=== PATIENT | male | born 1935 | race Caucasian/White ===

== ENCOUNTER → 2016-07-29 | Outpatient (CLI) | payer MEDICARE, OTHER ==
[2016-07-29 09:31] LABS: Calcium 9.4 mg/dL (8.4-10.2); Phosphorous 3.7 mg/dL (2.5-4.5); Potassium 4.5 mmol/L (3.5-5.1); Total Bilirubin 0.8 mg/dL (0.2-1.3)
== END | disposition home or self-care (01) ==
LOC: LABWHC1 08:11
PROVIDERS: ATTEND Internal Medicine
DX: N18.4 Chronic kidney disease, stage 4 (severe) (principal); E55.9 Vitamin D deficiency, unspecified; N25.81 Secondary hyperparathyroidism of renal origin
CPT/HCPCS: 36415; 80053; 82306; 83735; 83970; 84100

== ENCOUNTER 2016-11-16 21:00 | Emergency (ER) | payer MEDICARE, OTHER ==
[2016-11-16 21:08] VITALS: RESP 18
[2016-11-16] MEDS ORDERED: traMADol 50 MG TAB PO STA (21:35)
[2016-11-16 22:02] LABS: Basophils # (A) 0.1 k/uL (0-0.2); Basophils % (A) 1 %; CH 29.7; Eosinophils # (A) 0.6 k/uL (0-0.7); Eosinophils % (A) 7 %; HCT 42.6 % (39.0-53.0); HDW 2.67; HGB 14.3 gm/dL (13.0-17.5); Luc % (Auto) 1; Lymphocytes # (A) 1.6 k/uL (1.0-4.8); Lymphocytes % (A) 20 %; MCH 29.4 pg (25.0-35.0); MCHC 33.6 g/dL (31.0-37.0); MCV 87.7 fL (80.0-100.0); Mean Platelet Volume 7.4; Monocytes # (A) 0.4 k/uL (0-1.0); Monocytes % (A) 5 %; Neutrophils # (A) 5.2 k/uL (1.3-7.7); Neutrophils % (A) 65 %; RBC 4.86 m/uL (4.30-5.90); WBC 7.9 k/uL (3.8-10.6); WBC (Perox) 7.94
[2016-11-16 22:11] LABS: Calcium 9.3 mg/dL (8.4-10.2); Potassium 5.2 mmol/L (3.5-5.1)
--- NOTE | 2016-11-16 22:27 | ED ---
Fall HPI - General Chief Complaint: Fall Stated Complaint: fall Time Seen by Provider: 11/16/16 21:09 Source: patient, EMS Mode of arrival: EMS - History of Present Illness Initial Comments: Patient is an 81-year-old male who presents to the ED with a chief complaint of fall. Patient states that he was in the bathroom when the fall occurred. Patient states that there was a stray towel on the floor and that he tripped over it. The patient states that he then fell over onto the left side of his body. The patient landed on his left shoulder and hit the left side of his head against the ground. Patient does take a daily aspirin. Patient complains of pain in the left shoulder as well as pain in the right hip. Patient denies any chest pain prior to the fall. He does state that he did feel somewhat lightheaded prior to the fall. Patient does have a history of urinary frequency. He has a history of dysuria. Patient notes that he has frequent UTIs. The patient has been ambulatory since the fall occurred. Staff at [facility], where the patient currently resides, were immediately by his side after his fall occurred. The patient's refused transport to the ED yesterday but decided to come to the ED today given persistent pain in his left shoulder. - Related Data Home Medications Medication Instructions Recorded Confirmed Acetaminophen Tab [Tylenol Tab] 1,000 mg PO Q6HR PRN 11/16/16 11/16/16 Acetaminophen Tab [Tylenol Tab] 500 mg PO Q6H PRN 11/16/16 11/16/16 Aspirin 81 mg PO DAILY 11/16/16 11/16/16 Bisacodyl [Dulcolax] 10 mg RECTAL DAILY PRN 11/16/16 11/16/16 Cranberry Fruit Concentrate [Azo 250 mg PO DAILY PRN 11/16/16 11/16/16 Cranberry] Finasteride [Proscar] 5 mg PO DAILY 11/16/16 11/16/16 Insulin Aspart [NovoLOG Flexpen] 4 units SQ TID@0900,1130,1630 11/16/16 11/16/16 Insulin Aspart [NovoLOG Flexpen] See Protocol SQ TID-W/MEALS PRN 11/16/16 Insulin Detemir [Levemir Flextouch] 10 units SQ BID@0900,2000 11/16/1602/17 Levothyroxine Sodium [Synthroid] 100 mcg PO MOTUWETHFR 11/16/16 11/16/16 Levothyroxine Sodium [Synthroid] 200 mcg PO SUSA 11/16/16 11/16/16 Magnesium Hydroxide [Milk of 2,400 mg PO DAILY PRN 11/16/16 11/16/16 Magnesia] Omeprazole 40 mg PO DAILY 11/16/16 11/16/16 Pravastatin Sodium [Pravachol] 40 mg PO DAILY 11/16/16 11/16/16 Sennosides [Senna] 17.2 mg PO DAILY PRN 11/16/16 11/16/16 Previous Rx's Medication Instructions Recorded Cefuroxime [Ceftin] 500 mg PO BID 7 Days 11/16/16 traMADol HCl [Ultram] 50 mg PO BID #20 tab 11/16/16 Allergies Allergy/AdvReac Type Severity Reaction Status Date / Time lidocaine Allergy Unknown Verified 11/16/16 21:31 morphine Allergy Unknown Verified 11/16/16 21:31 Penicillins Allergy Unknown Verified 11/16/16 21:31 Sulfa (Sulfonamide Allergy Unknown Verified 11/16/16 21:31 Antibiotics) Review of Systems ROS Statement: Those systems with pertinent positive or pertinent negative responses have been documented in the HPI. ROS Other: All systems not noted in ROS Statement are negative. Constitutional: Denies: fever, chills, weakness Eyes: Denies: vision change ENT: Denies: ear pain, throat pain, dental pain Respiratory: Denies: cough, dyspnea, wheezes Cardiovascular: Denies: chest pain Endocrine: Denies: fatigue Gastrointestinal: Denies: abdominal pain, nausea, vomiting, diarrhea, constipation Genitourinary: Reports: urgency, dysuria, frequency. Denies: hematuria Musculoskeletal: Reports: other (left shoulder and right hip pain) Skin: Denies: rash, lesions, change in color Neurological: Denies: headache, weakness Psychiatric: Denies: anxiety, depression Past Medical History Past Medical History: Diabetes Mellitus History of Any Multi-Drug Resistant Organisms: None Reported Additional Past Surgical History / Comment(s): pacemaker, esophagus replaced Past Psychological History: No Psychological Hx Reported Smoking Status: Never smoker Past Alcohol Use History: None Reported Past Drug Use History: None Reported General Exam Limitations: physical limitation General appearance: alert, in no apparent distress Head exam: Present: atraumatic, normocephalic Eye exam: Present: normal appearance, PERRL, EOMI, other (the patient wears glasses) Pupils: Present: other (pupils are 3mm, equal and reactive) ENT exam: Present: normal exam, normal oropharynx Neck exam: Present: normal inspection, other (no tenderness to palpation of the spinous processes in the cervical region. Muscle spasm noted along the cervical musculature) Respiratory exam: Present: normal lung sounds bilaterally. Absent: respiratory distress, wheezes, rales, rhonchi Cardiovascular Exam: Present: regular rate, normal rhythm GI/Abdominal exam: Present: soft. Absent: distended, tenderness, guarding, rebound Extremities exam: Present: normal inspection, tenderness (over the left shoulder and right lateral hip) Back exam: Present: normal inspection, full ROM. Absent: tenderness Neurological exam: Present: alert, oriented X3 Psychiatric exam: Present: normal affect, normal mood Skin exam: Present: warm, dry, intact Course Vital Signs 11/16/16 11/16/16 11/17/16 21:02 23:34 00:42 Temperature 96.8 F L 97.6 F 97.5 F L Pulse Rate 69 68 65 Respiratory 18 18 18 Rate Blood Pressure 149/89 185/86 176/86 O2 Sat by Pulse 100 97 98 Oximetry Medical Decision Making - Medical Decision Making Patient is an 81-year-old male who presents to the ED with a chief complaint of fall. Patient had a mechanical fall yesterday. Patient landed on the left side of his body. Today, patient is complaining of left shoulder pain and right hip pain. We'll obtain x-ray imaging of left shoulder and right hip. Due to fact the patient takes a daily aspirin and did hit his head yesterday, will check a CT head. Patient fails [place] C-spine rules and, as such, will also have CT C-spine performed. Given the patient has frequent UTIs, we'll check a urine sample while he is here. This is also because patient is a having dysuria and increased urinary frequency. 12:17 AM Updated patient of overall findings including no evidence of any acute process on imaging. No evidence of any fracture of the left shoulder or right hip. Patient is able to move all four extremities without difficulty. Patient's pain has improved after he received Tramadol. Patient noted to have evidence of acute UTI. As such, patient treated with dose of Rocephin. He will be discharged home with prescription for Ceftin 500 mg twice a day 7 days. In addition, patient will be provided prescription for Tramadol to take twice a day when necessary pain. Patient instructed to follow up with his PCP within the next 3-5 days. That is improving. I have answered all of the patient's questions to his satisfaction. - Lab Data Result diagrams: 11/16/16 21:50 11/16/16 21:50 Lab Results 11/16/16 11/16/16 11/16/16 Range/Units 21:39 21:50 21:50 WBC 7.9 (3.8-10.6) k/uL RBC 4.86 (4.30-5.90) m/uL Hgb 14.3 (13.0-17.5) gm/dL Hct 42.6 (39.0-53.0) % MCV 87.7 (80.0-100.0) fL MCH 29.4 (25.0-35.0) pg MCHC 33.6 (31.0-37.0) g/dL RDW 13.0 (11.5-15.5) % Plt Count 104 L (150-450) k/uL Neutrophils % 65 % Lymphocytes % 20 % Monocytes % 5 % Eosinophils % 7 % Basophils % 1 % Neutrophils # 5.2 (1.3-7.7) k/uL Lymphocytes # 1.6 (1.0-4.8) k/uL Monocytes # 0.4 (0-1.0) k/uL Eosinophils # 0.6 (0-0.7) k/uL Basophils # 0.1 (0-0.2) k/uL PT (9.0-12.0) sec INR (<1.1) Sodium 137 (137-145) mmol/L Potassium 5.2 H (3.5-5.1) mmol/L Chloride 104 (98-107) mmol/L Carbon Dioxide 25 (22-30) mmol/L Anion Gap 8 mmol/L BUN 25 H (9-20) mg/dL Creatinine 2.22 H (0.66-1.25) mg/dL Est GFR (MDRD) Af Amer 35 (>60 ml/min/1.73 sqM) Est GFR (MDRD) Non-Af 29 (>60 ml/min/1.73 sqM) Glucose 240 H (74-99) mg/dL Calcium 9.3 (8.4-10.2) mg/dL Magnesium 2.0 (1.6-2.3) mg/dL Urine Color Yellow Urine Appearance Cloudy (Clear) Urine pH 6.5 (5.0-8.0) Ur Specific [place] 1.011 (1.001-1.035) Urine Protein 2+ H (Negative) Urine Glucose (UA) 3+ H (Negative) Urine Ketones Negative (Negative) Urine Blood Small H (Negative) Urine Nitrite Negative (Negative) Urine Bilirubin Negative (Negative) Urine Urobilinogen <2.0 (<2.0) mg/dL Ur Leukocyte Esterase Large H (Negative) Urine RBC 2 (0-5) /hpf Urine WBC 159 H (0-5) /hpf Urine WBC Clumps Rare H (None) /hpf Ur Squamous Epith Cells 1 (0-4) /hpf Urine Bacteria Rare H (None) /hpf Urine Mucus Rare H (None) /hpf 11/16/16 Range/Units 21:50 WBC (3.8-10.6) k/uL RBC (4.30-5.90) m/uL Hgb (13.0-17.5) gm/dL Hct (39.0-53.0) % MCV (80.0-100.0) fL MCH (25.0-35.0) pg MCHC (31.0-37.0) g/dL RDW (11.5-15.5) % Plt Count (150-450) k/uL Neutrophils % % Lymphocytes % % Monocytes % % Eosinophils % % Basophils % % Neutrophils # (1.3-7.7) k/uL Lymphocytes # (1.0-4.8) k/uL Monocytes # (0-1.0) k/uL Eosinophils # (0-0.7) k/uL Basophils # (0-0.2) k/uL PT 11.1 (9.0-12.0) sec INR 1.1 (<1.1) Sodium (137-145) mmol/L Potassium (3.5-5.1) mmol/L Chloride (98-107) mmol/L Carbon Dioxide (22-30) mmol/L Anion Gap mmol/L BUN (9-20) mg/dL Creatinine (0.66-1.25) mg/dL Est GFR (MDRD) Af Amer (>60 ml/min/1.73 sqM) Est GFR (MDRD) Non-Af (>60 ml/min/1.73 sqM) Glucose (74-99) mg/dL Calcium (8.4-10.2) mg/dL Magnesium (1.6-2.3) mg/dL Urine Color Urine Appearance (Clear) Urine pH (5.0-8.0) Ur Specific [place] (1.001-1.035) Urine Protein (Negative) Urine Glucose (UA) (Negative) Urine Ketones (Negative) Urine Blood (Negative) Urine Nitrite (Negative) Urine Bilirubin (Negative) Urine Urobilinogen (<2.0) mg/dL Ur Leukocyte Esterase (Negative) Urine RBC (0-5) /hpf Urine WBC (0-5) /hpf Urine WBC Clumps (None) /hpf Ur Squamous Epith Cells (0-4) /hpf Urine Bacteria (None) /hpf Urine Mucus (None) /hpf 11/16/16 23:52 EKG demonstrates NSR. Question whether this may be paced rhythm. There are no concerning ST-T changes. Disposition Clinical Impression: Acute UTI, Fall, Left shoulder pain, Right hip pain Disposition: HOME SELF-CARE Condition: Good Instructions: Fall Prevention for Older Adults (ED), Urinary Tract Infection in Men (ED) Additional Instructions: Please take the antibiotic provided to you today for the next seven days. It should help to treat your Urinary Tract Infection. Return to the ED should you have any additional falls or develop a fever while at home. Prescriptions: Cefuroxime [Ceftin] 500 mg PO BID 7 Days traMADol HCl [Ultram] 50 mg PO BID #20 tab Referrals: Yuli Leon MD [Primary Care Provider] - 11/19/16 (Please follow up with Dr. Leon within the next 3-5 days to ensure that your symptoms are improving) Time of Disposition: 00:17
[2016-11-16 22:28] LABS: Appearance,Urine Cloudy (Clear); Bacteria,Urine Rare /hpf; Bilirubin,Urine Negative (Negative); Glucose,Urine (UA) 3+ (Negative); Ketones,Urine Negative (Negative); Leukocyte Esterase,Urine Large (Negative); Mucus,Urine Rare /hpf; Nitrite,Urine Negative (Negative); PH, Urine 6.5 (5.0-8.0); Particle Count 993; Protein,Urine 2+ (Negative); RBC,Urine 2 /hpf (0-5); Specific Gravity,Urine 1.011 (1.001-1.035); Squamous Epithelial Cell,Urine 1 /hpf (0-4); UA Billing (MACRO vs. MICRO) MICRO; Urobilinogen,Urine <2.0 mg/dL (<2.0); WBC,Urine 159 /hpf (0-5)
[2016-11-16 22:31] LABS: INR 1.1 (<1.1); Prothrombin Time 11.1 sec (9.0-12.0)
--- NOTE | 2016-11-16 22:46 | CT ---
EXAM: CT Head Without Intravenous Contrast CLINICAL HISTORY: Reason: Fall. Head Trauma TECHNIQUE: Axial computed tomography images of the head/brain without intravenous contrast. CTDI is 58 mGy and DLP is 1127.7 mGy-cm This CT exam was performed using one or more of the following dose reduction techniques: automated exposure control, adjustment of the mA and/or kV according to patient size, and/or use of iterative reconstruction technique. Coronal and sagittal reformatted images were created and reviewed. COMPARISON: No relevant prior studies available. 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 Chronic small vessel ischemic change and global volume loss. No evolving territorial infarction. No hemorrhage. No mass effect or edema. Ventricles: Unremarkable. No ventriculomegaly. Bones/joints: Unremarkable. No acute fracture. Soft tissues: Unremarkable. Sinuses: Mild mucosal thickening of the ethmoid air cells. Mastoid air cells: Unremarkable as visualized. No mastoid effusion. 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 Chronic small vessel ischemic change and global volume loss. No acute intracranial abnormality. EXAM: CT Cervical Spine Without Intravenous Contrast CLINICAL HISTORY: Reason: Fall. Head Trauma TECHNIQUE: Axial computed tomography images of the cervical spine without intravenous contrast. CTDI is 28.7 mGy and DLP is 528.9 mGy-cm This CT exam was performed using one or more of the following dose reduction techniques: automated exposure control, adjustment of the mA and/or kV according to patient size, and/or use of iterative reconstruction technique. Coronal and sagittal reformatted images were created and reviewed. COMPARISON: No relevant prior studies available. FINDINGS: Vertebrae: Mild anterolisthesis of C4 over C5 which appears be degenerative. Schmorl's node seen at the inferior endplate of C6. Prominent calcification of the transverse ligament. No acute fracture. Discs/spinal canal/neural foramina: Multilevel degenerative facet disease is seen. Prominent disc osteophyte complexes are seen at C3/C4, C4/C5, C5/C6 and C6/C7 with varying degrees of central and neuroforaminal stenosis. Soft tissues: Unremarkable. Lung apices: Unremarkable as visualized. IMPRESSION: No acute findings. Cervical spondylosis as described.
--- NOTE | 2016-11-16 22:53 | XR ---
EXAM: XR Chest, 2 Views CLINICAL HISTORY: Reason: Fall TECHNIQUE: Frontal and lateral views of the chest. COMPARISON: No relevant prior studies available. FINDINGS: Lungs: Unremarkable. No consolidation. Pleural space: Unremarkable. No pneumothorax. Heart: Cardiomegaly. Left sided cardiac pacing device. Mediastinum: Unremarkable. Bones/joints: Mild chronic anterior wedging deformities of the mid thoracic spine. No acute fracture. IMPRESSION: No acute findings.
--- NOTE | 2016-11-16 23:02 | XR ---
EXAM: XR Left Shoulder Complete, 3 Views CLINICAL HISTORY: Reason: Fall. Left shoulder injury TECHNIQUE: Three views of the left shoulder. COMPARISON: Left shoulder radiograph dated 04/30/16 FINDINGS: Bones/joints: No acute fracture. No dislocation. Soft tissues: Left sided cardiac pacing device. IMPRESSION: No acute fracture.
--- NOTE | 2016-11-16 23:06 | XR ---
EXAM: XR Right Hip With Pelvis When Performed, 3 Views CLINICAL HISTORY: Reason: Fall. Pain TECHNIQUE: Two views of the right hip, with AP pelvis. COMPARISON: No relevant prior studies available. FINDINGS: Bones/joints: Unremarkable. No acute fracture. No dislocation. Soft tissues: Unremarkable. IMPRESSION: No acute fracture or dislocation.
[2016-11-17 00:43] VITALS: PULSE 65; TEMP 97.5
[2016-11-17 00:50] VITALS: BP 176/86
== END 2016-11-17 00:50 | disposition home or self-care (01) ==
LOC: EC 21:00
DX: M25.512 Pain in left shoulder (principal); M25.551 Pain in right hip; N39.0 Urinary tract infection, site not specified; M62.838 Other muscle spasm; E11.9 Type 2 diabetes mellitus without complications; Z79.4 Long term (current) use of insulin; Z79.82 Long term (current) use of aspirin; Z79.899 Other long term (current) drug therapy; Z88.0 Allergy status to penicillin; Z88.2 Allergy status to sulfonamides; Z88.4 Allergy status to anesthetic agent; Z88.5 Allergy status to narcotic agent; W01.0XXA Fall on same level from slipping, tripping and stumbling without subsequent striking against object, initial encounter; Y92.002 Bathroom of unspecified non-institutional (private) residence as the place of occurrence of the external cause
CPT/HCPCS: 99285; 96365; 36415; 93005; 80048; 83735; 85025; 85610; 81001; 87086; 71020; 73030; 73502; 72125; 70450; J0696; 87077; 87186